=== PATIENT | female | born 1990 | race African-American/Black ===

== ENCOUNTER 2024-12-10 14:57 | Emergency (ER) | payer OTHER ==
[~2024-12-10] VITALS: Ht 167.6 cm; Wt 63.5 kg
[2024-12-10] MEDS: TDAP [DIPH/PERTUSSIS/TET] 0.5 ML VIAL IM ONE (15:30)
[2024-12-10] MEDS: HYDROCODONE/APAP 5/325MG TABLET PO ONE (15:30)
[2024-12-10] MEDS ORDERED: HYDROCODONE/APAP 5/325MG TABLET ONE (15:59)
[2024-12-10] MEDS ORDERED: TDAP [DIPH/PERTUSSIS/TET] 0.5 ML VIAL IM ONE (15:59)
[2024-12-10] MEDS ORDERED: METH-649 PO (17:07)
[2024-12-10] MEDS ORDERED: ACET-2030 PO (17:08)
[2024-12-10] MEDS ORDERED: IBUP-1490 PO (17:09)
[2024-12-10 17:17] LABS: PREGNANCY TEST URINE QUAL NEGATIVE (NEGATIVE)
[2024-12-10] MEDS: KETOROLAC TROMETHAMINE INJ 30 MG/ML VIAL IM ONE (17:30)
[2024-12-10] MEDS ORDERED: KETOROLAC TROMETHAMINE INJ 30 MG/ML VIAL ONE (17:33)
[2024-12-10 17:53] VITALS: BP 126/84; TEMP 98.4; O2SAT 100
== END 2024-12-10 17:54 | disposition home or self-care (01) ==
LOC: ER 15:07
DX: S61.512A Laceration without foreign body of left wrist, initial encounter (principal); M54.2 Cervicalgia; R00.0 Tachycardia, unspecified; F41.9 Anxiety disorder, unspecified; I10 Essential (primary) hypertension; V43.52XA Car driver injured in collision with other type car in traffic accident, initial encounter; Y93.89 Activity, other specified; Y92.488 Other paved roadways as the place of occurrence of the external cause; Y99.8 Other external cause status
CPT/HCPCS: 29125; 72125; 73110; 84703; 90471; 90715; 93005; 96372; 99285; J1885